=== PATIENT | male | born 1945 | race Caucasian/White ===

== ENCOUNTER 2020-11-08 13:58 | Emergency (ER) | payer OTHER ==
[~2020-11-08] VITALS: Ht 182.9 cm; Wt 100.0 kg
--- NOTE | 2020-11-08 14:09 | NUR ---
ASSUMED CARE OF PATIENT. PATIENT REPORTS HE WAS [facility] AND HAD A EKG DONE. HE WAS FOUND TO BE IN AFIB, PT HAS A HISTORY OF AFIB. PT REPORTS HE IS ON XERALTO. NO MEDICAL COMPLAINTS AT THIS TIME. PT DOES REPORT THAT HE DOES HAVE LEFT SIDED CHEST PAIN ON AND OFF FOR THE LAST YEAR. VS STABLE. EKG DONE. STOREROOM ATTENDANT ON. WILL CONTINUE TO MONITOR.
[2020-11-08] MEDS ORDERED: SODIUM CHLORIDE FLUSH 10ML SYR IVF ONE (14:30)
[2020-11-08 14:42] LABS: BASOPHILS % (AUTO) 1 % (0-1); EOSINOPHILS % (AUTO) 1 % (1-7); LYMPHOCYTES % (AUTO) 15 % (22-44); MEAN PLATELET VOLUME 7.7 fL (7.4-10.4); MONOCYTES % (AUTO) 6 % (2-9); NEUTROPHILS % (AUTO) 77 % (42-75); PLATELET COUNT 153 x10^3/uL (130-400); RED BLOOD COUNT 4.82 x10^6/uL (4.38-5.82)
[2020-11-08] MEDS ORDERED: simvastatin (14:42)
[2020-11-08] MEDS ORDERED: xarelto (14:42)
[2020-11-08] MEDS ORDERED: lisinopril (14:43)
[2020-11-08] MEDS ORDERED: allopurinol (14:44)
[2020-11-08] MEDS ORDERED: finasteride (14:45)
[2020-11-08 14:50] LABS: MD NO
[2020-11-08 14:56] LABS: ALBUMIN 3.8 g/dL (3.4-5.0)
[2020-11-08 15:01] LABS: ALANINE AMINOTRANSFERASE 15 U/L (12-78); ALKALINE PHOSPHATASE 74 U/L (45-117); BILIRUBIN,TOTAL 0.7 mg/dL (0.2-1.0); CREATININE 0.92 mg/dL (0.7-1.3); TOTAL PROTEIN 6.9 g/dL (6.4-8.2); TROPONIN I 0.019 ng/mL (0.000-0.045)
--- NOTE | 2020-11-08 15:06 | NUR ---
PT RESTING IN ROOM. VS STABLE. NO ACUTE DISTRESS NOTED. CALL LIGHT IN PLACE. WILL CONTINUE TO MONITOR.
[2020-11-08 15:17] LABS: ANION GAP 6 mmol/L (5-15); CHLORIDE 107 mmol/L (98-107)
--- NOTE | 2020-11-08 15:55 | NUR ---
PT RESTING IN ROOM. VS STABLE. NO ACUTE DISTRESS NOTED. WILL CONTINUE TO MONITOR.
[2020-11-08 15:57] VITALS: BP 134/89
== END 2020-11-08 16:22 | disposition home or self-care (01) ==
LOC: ED 16:14
DX: R07.89 Other chest pain (principal); I48.91 Unspecified atrial fibrillation; I10 Essential (primary) hypertension; Z86.73 Personal history of transient ischemic attack (TIA), and cerebral infarction without residual deficits
CPT/HCPCS: 36415; 71045; 80053; 84484; 85025; 93005; 99285